=== PATIENT | female | born 1990 | race Caucasian/White ===

== ENCOUNTER 2016-06-15 08:00 | Inpatient (IN) | payer MEDICAID ==
[2016-06-15] VITALS (11 sets, daily range): BP systolic 106–127; RESP 17–24; TEMP 98.3–98.8; Ht 160 cm; Wt 81.6 kg
[~2016-06-15] VITALS: Ht 160 cm; Wt 81.6 kg
[~2016-06-15 08:00] MED LIST: LIDOCAINE 2% MPF 10 ML EPIDURAL ONE
[2016-06-15] MEDS ORDERED: LIDOCAINE 1% BUFFERED 1 ML SYR INTRADERM PRN ×2 (08:20)
[2016-06-15] MEDS ORDERED: PROMETHAZINE 25 MG/ML VIAL IV PRN ×2 (08:20)
[2016-06-15] MEDS ORDERED: LACT RINGERS 1,000 ML IV SCH ×2 (08:20)
[2016-06-15] MEDS ORDERED: OXYTOCIN 15 UNITS/250 ML NS 250 ML IV SCH ×5 (08:20→17:10)
[2016-06-15] MEDS ORDERED: FAMOTIDINE 20 MG INJ IV PRN ×2 (08:20)
[2016-06-15] MEDS ORDERED: ONDANSETRON 4 MG VIAL IV PRN ×2 (08:20)
[2016-06-15] MEDS ORDERED: FAMOTIDINE 20 MG TAB PO PRN ×2 (08:20)
[2016-06-15] MEDS ORDERED: CEFAZOLIN (LD/OB) 100 ML IV PRN ×2 (08:20)
[2016-06-15] MEDS ORDERED: METOCLOPRAMIDE 10 MG/2 ML VIAL IV PUSH PRN ×2 (08:20)
[2016-06-15] MEDS ORDERED: LIDOCAINE 1% 30 ML PF INFILTRATE ONE ×2 (08:20)
[2016-06-15] MEDS ORDERED: TERBUTALINE 1 MG/ML VIAL SUBQ PRN ×2 (08:20)
[2016-06-15] MEDS ORDERED: MORPHINE 5 MG/1 ML VIAL IV PRN ×2 (08:20)
[2016-06-15] MEDS ORDERED: ACETAMINOPHEN 325 MG TAB PO PRN ×2 (08:20)
[2016-06-15] MEDS ORDERED: ALU/MAG/SIM 30 ML UDC PO PRN ×2 (08:20)
[2016-06-15] MEDS ORDERED: Flu Vaccine Quadrivalent 60 MCG/0.5 ML IM.VACC ONE (09:30)
[2016-06-15] MEDS ORDERED: ROPIV/FENT 0.2%-2MCG/ML 100 ML EPIDURAL ONE (11:18)
[2016-06-15] MEDS ORDERED: FENTANYL 100 MCG/2 ML AMP ONE (11:18)
[2016-06-15] MEDS ORDERED: LACT RINGERS 500 ML IV ONE (12:00)
[2016-06-15] MEDS ORDERED: ROPIV/FENT 0.2%-2MCG/ML 100 ML EPIDURAL SCH (12:00)
[2016-06-15] MEDS ORDERED: LACT RINGERS 500 ML IV PRN (12:00)
[2016-06-15] MEDS ORDERED: FENTANYL 100 MCG/2 ML AMP EPIDURAL ONE (12:00)
[2016-06-15] MEDS ORDERED: SODIUM CHLORIDE 0.9% 500 ML IV PRN (12:00)
[2016-06-15] MEDS ORDERED: MEASLES,MUMPS,RUBELLA VAC SUBQ.VACC ONE (17:10)
[2016-06-15] MEDS ORDERED: DERMOPLAST SPRAY TOPICAL PRN (17:10)
[2016-06-15] MEDS ORDERED: MAG HYDROX 30 ML UDC PO PRN (17:10)
[2016-06-15] MEDS ORDERED: ASTRINGENT MED PADS 40'S TOPICAL PRN (17:10)
[2016-06-15] MEDS ORDERED: ZOLPIDEM 5 MG TAB PO PRN (17:10)
[2016-06-15] MEDS: Ibuprofen 600 MG TAB PO PRN (17:48)
[2016-06-15] MEDS ORDERED: **ONLY ANESTEHSIA MAY ORDER OPIATES WHILE ON EPIDURAL XX SCH (20:00)
[2016-06-16 00:57] VITALS: BP_SYST 114; RESP 15; TEMP 98.3
[2016-06-16 05:07] VITALS: BP_SYST 116; RESP 17; TEMP 98
[2016-06-16] MEDS: Ibuprofen 600 MG TAB PO PRN ×3 (08:08→21:43)
[2016-06-16] MEDS: DOCUSATE SOD 100 MG CAP PO SCH (08:08)
[2016-06-16 09:43] VITALS: BP_SYST 111; RESP 18; TEMP 98.2
[2016-06-16 14:00] VITALS: BP_SYST 121; RESP 16; TEMP 98
[2016-06-16] MEDS ORDERED: TDaP 0.5 ML VIAL IM.VACC ONE (16:14)
[2016-06-16] MEDS: TDaP 0.5 ML VIAL IM.VACC ONE ×2 (16:19→16:40)
[2016-06-16 17:24] VITALS: BP_SYST 112; RESP 18; TEMP 98.3
[2016-06-17 05:28] VITALS: BP_SYST 117; RESP 16; TEMP 98.3
[2016-06-17] MEDS: Ibuprofen 600 MG TAB PO PRN (06:41)
[2016-06-17] MEDS: DOCUSATE SOD 100 MG CAP PO SCH (08:06)
[2016-06-17 09:30] VITALS: BP_SYST 121; RESP 18; TEMP 98.1
[2016-06-17 09:59] VITALS: BP_SYST 121; RESP 18; TEMP 98.1
== END 2016-06-17 12:40 | disposition home or self-care (01) | DRG 775 ==
LOC: LD 08:12 → OB 18:19
PROVIDERS: ADMIT Obstetrics & Gynecology Reproductive Endocrinology; ATTEND Obstetrics & Gynecology Reproductive Endocrinology
PROC: 10E0XZZ Delivery of Products of Conception, External Approach (ICD-10-PCS; principal; 2016-06-15)
PROC: 10907ZC Drainage of Amniotic Fluid, Therapeutic from Products of Conception, Via Natural or Artificial Opening (ICD-10-PCS; 2016-06-15)
PROC: 3E033VJ Introduction of Other Hormone into Peripheral Vein, Percutaneous Approach (ICD-10-PCS; 2016-06-15)
DX: O48.0 Post-term pregnancy (principal); Z37.0 Single live birth; Z3A.40 40 weeks gestation of pregnancy
CPT/HCPCS: 80307; 85025; 86850; 86900; 86901